=== PATIENT | male | born 1950 | race Caucasian/White ===

== ENCOUNTER 2016-05-27 08:25 | Day surgery (SDC) | payer OTHER ==
[2016-05-27] MEDS ORDERED: LIDOCAINE 1% 5 ML SDV ID PRN (09:21)
[2016-05-27] MEDS ORDERED: LR 1,000 ML IV ONE (09:21)
[2016-05-27 09:31] LABS: ALANINE AMINOTRANSFERASE 43 IU/L (21-72); ALBUMIN 4.2 g/dL (3.5-5.0); ALKALINE PHOSPHATASE 66 IU/L (38-126); ANION GAP 13 mEq/L (8-16); ASPARTATE AMINOTRANSFERASE 32 IU/L (17-59); BILIRUBIN,TOTAL 1.1 mg/dL (0.1-1.4); CALCIUM 9.5 mg/dL (8.5-10.4); CARBON DIOXIDE 25 mEq/l (22-31); CHLORIDE 109 mEq/L (97-110); CHOLESTEROL 124 mg/dL (140-220); CHOLESTEROL/HDL RATIO 3.65 RATIO (1.00-4.97); CREATININE 0.9 mg/dL (0.7-1.3); GLOMERULAR FILTRATION RATE > 60; GLUCOSE 84 mg/dL (70-100); HIGH DENSITY LIPOPROTEIN 34 mg/dL (40-65); LOW DENSITY LIPOPROTEIN 68 mg/dL (80-100); NON-HIGH DENSITY LIPOPROTEIN 90 mg/dL (90-129); POTASSIUM 4.2 mEq/L (3.5-5.2); SODIUM 147 mEq/L (134-144); TOTAL PROTEIN 7.2 g/dL (6.3-8.2); TRIGLYCERIDE 114 mg/dL (40-150); VERY LOW DENSITY LIPOPROTEINS 22 mg/dL (8-25)
[2016-05-27 09:46] LABS: INR 1.23 (0.83-1.16); PROTIME(PATIENT) 15.5 SEC (12.0-15.0)
[2016-05-27] MEDS ORDERED: PROPOFOL/EMULSION 500 MG/50 ML BOTTLE IV ONE (09:47)
[2016-05-27] MEDS ORDERED: LIDOCAINE 2% 5 ML SDV ONE (09:57)
--- NOTE | 2016-05-27 10:39 | GPN ---
[f rep st] PROCEDURE NOTE PREPROCEDURE DIAGNOSIS: Chronic cough. POSTPROCEDURE DIAGNOSIS: 1. Irregular Z-line. 2. Mild antral gastritis. PROCEDURE: Esophagogastroduodenoscopy with biopsies. ANESTHESIA: Monitored anesthesia care. INDICATION: The patient is a 66-year-old gentleman who was seen in our office for chronic cough. His omeprazole dose was increased from 20 mg a day to 40 mg a day. He has intermittent heartburn symptoms. The patient is ASA class 3. The risks and benefits of the procedure were discussed with the patient and consent obtained. Risks include, but not limited to, bleeding, perforation, risks associated with sedation. DESCRIPTION OF PROCEDURE: The end-viewing endoscope was inserted into the esophagus, into stomach and second portion of the duodenum. The esophagus appears normal. The Z-line is slightly irregular and biopsies were taken to evaluate for Garcia's esophagus using cold biopsy forceps. No evidence of varices or esophagitis. The stomach shows mild antral gastritis and biopsies were taken for Helicobacter pylori using cold biopsy forceps. The duodenum second portion is normal. IMPRESSION: 1. Slightly irregular Z-line, status post biopsies for Garcia's. 2. Mild antral gastritis, status post biopsies for H pylori. RECOMMENDATIONS: 1. Discharge to home with escort. 2. Advance diet as tolerated. 3. Continue current medications including omeprazole 40 mg orally daily. 4. Okay to resume Warfarin this evening. 5. Agree with lifestyle modifications to prevent acid reflux. 6. Follow up in our office as previously scheduled. Thank you for allowing me to participate in the care of your patient. Please do not hesitate to call with questions. /[id number]/MODL MTDD
== END 2016-05-27 11:40 | disposition home health service (06) ==
LOC: FSGY 08:25
PROVIDERS: ATTEND Internal Medicine Gastroenterology
PROC: 0DB68ZX Excision of Stomach, Via Natural or Artificial Opening Endoscopic, Diagnostic (ICD-10-PCS; 2016-05-27)
PROC: 0DB38ZX Excision of Lower Esophagus, Via Natural or Artificial Opening Endoscopic, Diagnostic (ICD-10-PCS; principal; 2016-05-27 09:45)
DX: R05 Cough (principal); K29.70 Gastritis, unspecified, without bleeding; K22.9 Disease of esophagus, unspecified; K21.9 Gastro-esophageal reflux disease without esophagitis; R12 Heartburn; Z86.711 Personal history of pulmonary embolism; D68.51 Activated protein C resistance; I25.10 Atherosclerotic heart disease of native coronary artery without angina pectoris; E78.5 Hyperlipidemia, unspecified; I10 Essential (primary) hypertension; F32.9 Major depressive disorder, single episode, unspecified; G47.33 Obstructive sleep apnea (adult) (pediatric); Z79.01 Long term (current) use of anticoagulants; Z87.891 Personal history of nicotine dependence
CPT/HCPCS: J2704

== ENCOUNTER → 2016-07-29 | Outpatient (CLI) | payer OTHER | LOC: BHFA 11:15 | PROVIDERS: ATTEND Internal Medicine Interventional Cardiology | DX: I25.10 Atherosclerotic heart disease of native coronary artery without angina pectoris (principal); E78.5 Hyperlipidemia, unspecified; I26.99 Other pulmonary embolism without acute cor pulmonale ==

== ENCOUNTER → 2017-07-24 | Outpatient (CLI) | payer OTHER ==
[~2017-07-24] MED LIST: IOPAMIDOL (ISOVUE-300) 100 ML BTL ONE
== END ==
LOC: FIMAGING 12:33
PROVIDERS: ATTEND Internal Medicine
DX: J98.4 Other disorders of lung (principal); K59.00 Constipation, unspecified
CPT/HCPCS: 74177; Q9967